=== PATIENT | female | born 1960 | race Asian ===

== ENCOUNTER 2021-06-25 13:30 | Inpatient (IN) | payer MEDICAID ==
[~2021-06-25] VITALS: Ht 154.9 cm; Wt 65.8 kg
[~2021-06-25 13:30] MED LIST: HYDR25TA4 PO; LOSA25TA3 PO; PANT40TA2 PO; SIMV-49 PO
--- NOTE | 2021-06-25 13:30 | NUR ---
PT BIB C/O LLQ ABDOMINAL PAIN STARTED YESTERDAY. PT IS AAOX4, NOT IN RESPIRATORY DISTRESS, V/S STABLE, KEPT RESTED AND COMFORTABLE. WILL CONTINUE TO MONITOR.
--- NOTE | 2021-06-25 13:50 | NUR ---
IV LINE ESTABLISHED BLOOD DRAWN AND SENT TO LAB.
--- NOTE | 2021-06-25 14:00 | NUR ---
URINE SPECIMEN COLLECTED AND SENT TO LAB.
[2021-06-25] MEDS ORDERED: KETOROLAC TROMETHAMINE 15 MG/ML VIAL ONE (14:23)
[2021-06-25 14:29] LABS: BASOPHILS # (AUTO) 0.1 K/uL (0.0-0.2); BASOPHILS % (AUTO) 0.5 % (0.0-2.0); EOSINOPHILS % (AUTO) 0.6 % (0.0-6.0); HEMATOCRIT 41 % (33-45); HEMOGLOBIN 13.8 g/dL (11.5-14.8); LYMPHOCYTES % (AUTO) 15.5 % (20.0-44.0); MEAN CORPUSCULAR HGB CONC 33 g/dl (31.0-36.0); MEAN CORPUSCULAR VOLUME 91 fL (82-100); MONOCYTES # (AUTO) 1.2 K/uL (0.1-1.30); MONOCYTES % (AUTO) 9.4 % (2.0-12.0); NEUTROPHILS # (AUTO) 9.4 K/uL (1.8-8.9); PLATELET COUNT (AUTO) 258 K/uL (150-450); RED BLOOD CELL COUNT(AUTO) 4.52 MIL/uL (4.0-5.2); WHITE BLOOD COUNT (AUTO) 12.7 K/uL (4.3-11.0)
[2021-06-25] MEDS ORDERED: KETOROLAC TROMETHAMINE INJ 30 MG/ML VIAL IV ONE (14:30)
[2021-06-25 14:32] LABS: BILIRUBIN,URINE Negative (NEGATIVE); COLOR,URINE YELLOW (YELLOW); LEUKOCYTE ESTERASE ,URINE Negative (NEGATIVE); NITRITE, URINE Negative (NEGATIVE); PROTEIN,URINE Negative (NEGATIVE); UGLUCOSE Negative (NEGATIVE); UROBILINOGEN,URINE 0.2 EU/dL (0.2)
[2021-06-25 14:37] LABS: CALCIUM, SERUM 9.3 mg/dL (8.5-10.1); CARBON DIOXIDE 28 mmol/L (21-32); CHLORIDE 101 mmol/L (98-107); CREATININE 0.7 mg/dL (0.6-1.3); GLUCOSE 106 mg/dL (74-106); POTASSIUM 3.5 mmol/L (3.5-5.1); SODIUM SERUM 139 mmol/L (136-145); UREA NITROGEN, BLOOD 12 mg/dL (7-18)
[2021-06-25 14:50] LABS: ALANINE AMINOTRANSFERASE 111 U/L (12-78); ALKALINE PHOSPHATASE 87 U/L (46-116); ASPARTATE AMINOTRANSFERASE 38 U/L (15-37); BILIRUBIN,DIRECT 0.1 mg/dL (0.0-0.2); BILIRUBIN,TOTAL 0.6 mg/dL (0.2-1.0); LIPASE 360 U/L (73-393); TOTAL PROTEIN, SERUM 8.4 g/dL (6.4-8.2)
[2021-06-25] MEDS ORDERED: ALBU18HF2 IH (16:51)
[2021-06-25] MEDS ORDERED: AMLO-212 PO (16:51)
[2021-06-25] MEDS ORDERED: FLUT12AE5 INH (16:51)
[2021-06-25] MEDS ORDERED: MULT-447 PO (16:51)
[2021-06-25] MEDS ORDERED: LORA10TA7 PO (16:51)
[2021-06-25] MEDS ORDERED: MONT10TA22 PO (16:51)
[2021-06-25] MEDS ORDERED: CEFTRIAXONE 1GM BAG (ER ONLY) 50 ML IV ONE (16:56)
[2021-06-25] MEDS ORDERED: METRONIDAZOLE 500MG/ NS 100ML 100 ML IV ONE (17:00)
[2021-06-25] MEDS ORDERED: CEFTRIAXONE 1 G in IV D5W 50 ML IV ONE (17:00)
[2021-06-25] MEDS: MONTELUKAST SODIUM (10MG) 10 MG TABLET PO SCH ×2 (18:00→19:04)
[2021-06-25] MEDS: IV NS 0.9% 1,000 ML IV PRN ×2 (18:00→23:23)
[2021-06-25] MEDS ORDERED: LORATADINE 10 MG TABLET PO PRN (18:00)
[2021-06-25] MEDS ORDERED: Z GUARD REMEDY 2 OZ OINT TP PRN (18:00)
[2021-06-25] MEDS ORDERED: ONDANSETRON HCL/PF 4 MG/2 ML VIAL IVP PRN (18:00)
[2021-06-25] MEDS: METRONIDAZOLE 500MG/ NS 100ML 500 MG in PREMIX 1 EA IV SCH (18:00)
--- NOTE | 2021-06-25 18:54 | NUR ---
NURSING SUP GAVE M/S BED 306-2. PLEASE CALL AFTER SHIFT CHANGE FOR REPORT.
--- NOTE | 2021-06-25 19:04 | NUR ---
FLAGYL IV NOT GIVEN WILL DUE AT 2300H.
--- NOTE | 2021-06-25 19:07 | NUR ---
M[place]EL[place] NOT GIVEN PT IS ON NPO.
--- NOTE | 2021-06-25 19:25 | NUR ---
REPORT GIVEN TO RN YANIV
[2021-06-25] MEDS ORDERED: ALBUTEROL FS 2.5 MG/0.5 ML VIAL.NEB NEB PRN (19:30)
[2021-06-25 21:15] VITALS: BP 129/70
--- NOTE | 2021-06-25 21:15 | NUR ---
MS RN ADMITTING NOTE PT TRANSPORTED BY [facility] TO UNIT FROM ER AT THIS TIME. RECEIVED REPORT FROM CARLOS SORIA @ER, A/OX4. PT ABLE TO MAKE NEEDS KNOWN. NO SOB, C/O PAIN, OR ANY APPARENT DISTRESS NOTED. RESPIRATIONS EVEN AND UNLABORED, ACTIVE BOWEL SOUNDS AUSCULTATED THROUGHOUT, ABDOMEN SOFT AND TENDER TO TOUCH, ACTIVE BOWEL SOUNDS AUSCULTTAED THROUGHOUT, SKIN IS INTACT, WARM TO TOUCH. CAPILLARY REFILL 3 SECONDS,PULSES PRESENT BILATERALLY, GOOD CIRCULATION NOTED. IV ACCESS IN LEFT HAND GAUGE #18, INTACT, PATENT, AND FLUSHING WELL. PT'S BELONGINGS ACCOUNTED FOR, AND KEPT AT PT'S BEDSIDE PER PT REQUEST. ASPIRATIONAND SAFETY PRECAUTIONS IN PLACE AND MAINTAINED AT ALL TIMES. BED IN LOWEST LOCKED POSITION, SIDE RAILS UPX2, TABLE AND CALL LIGHT WITHIN REACH. WILL CONTINUE TO MONITOR.
--- NOTE | 2021-06-25 21:19 | NUR ---
PATIENT MOVE TO ROOM 306 IN STABLE CONDITION. VSS. IV KEPT ON THE FLOOR FOR CONTINUITY OF CARE
[2021-06-25] MEDS: LEVOFLOXACIN 500 MG /D5W 100ML 500 MG in PREMIX 1 EA IV SCH (22:20)
[2021-06-25] MEDS: ACETAMINOPHEN 325 MG TABLET PO PRN (22:22)
[2021-06-26] MEDS ORDERED: HYDROCODONE/APAP 5/325MG TABLET PO PRN
[2021-06-26] MEDS: METRONIDAZOLE 500MG/ NS 100ML 500 MG in PREMIX 1 EA IV SCH ×5 (00:12→23:36)
[2021-06-26] MEDS ORDERED: HYDROCODONE/APAP 5/325MG TABLET ONE (01:15)
--- NOTE | 2021-06-26 06:12 | NUR ---
MS RN CLOSING NOTE PT AWAKE IN BED, A/O X4. PT IS STABLE ON ROOM AIR. NO SOB NOTED, NO S/S OF RESPIRATORY DISTRESS. PT IS BEDREST. IV ACCESS INTACT, PATENT AND FLUSHING WELL, ALL NEEDS, CARE, AND MEDICATIONS ADMINISTERED PER ORDER. SAFETY, SEIZURE, AND ASPIRATION PRECAUTIONS MAINTAINED AT ALL TIMES. BED IN LOWEST LOCKED POSITION, HOB ELEVATED, SIDE RAILS UP X2. CALL LIGHT AND TABLE WITHIN REACH. WILL ENDORSE TO ONCOMING NURSE FOR TIMBO.
[2021-06-26 06:47] LABS: BILIRUBIN,TOTAL 0.7 mg/dL (0.2-1.0); CALCIUM, SERUM 8.3 mg/dL (8.5-10.1); CREATININE 0.5 mg/dL (0.6-1.3); PHOSPHORUS 3.5 mg/dL (2.5-4.9); POTASSIUM 3.8 mmol/L (3.5-5.1); TOTAL PROTEIN, SERUM 7.1 g/dL (6.4-8.2)
[2021-06-26 06:57] LABS: THYROID STIMULATING HORMONE 1.461 uIU/mL (0.358-3.74)
--- NOTE | 2021-06-26 07:16 | NUR ---
RN OPENING NOTES Patient seen comfortably lying in bed, breathing even and unlabored, no SOB, no apparent distress noted, denies any pain or discomfort at this time. Safety precautions in place, brakes locked, side rails up X 2, call light left within reach, will monitor closely for any changes.
--- NOTE | 2021-06-26 07:30 | NUR ---
RN MS NOTES PT IN BED, SEEN AND EXAMINED BY DR. ROLAND, PLAN OF CARE DISCUSSED WITH PT, VERBALIZED UNDERSTANDING, PER MD, KEEP PT NPO, ORDERS GIVEN, NOTED AND CARRIED OUT.
[2021-06-26 07:43] LABS: BASOPHILS # (AUTO) 0.1 K/uL (0.0-0.2); BASOPHILS % (AUTO) 0.6 % (0.0-2.0); EOSINOPHILS % (AUTO) 1.9 % (0.0-6.0); HEMATOCRIT 37 % (33-45); LYMPHOCYTES # (AUTO) 2.1 K/uL (0.8-4.8); LYMPHOCYTES % (AUTO) 18.9 % (20.0-44.0); MEAN CORPUSCULAR HGB CONC 33 g/dl (31.0-36.0); MEAN CORPUSCULAR VOLUME 93 fL (82-100); MONOCYTES % (AUTO) 8.8 % (2.0-12.0); NEUTROPHILS # (AUTO) 7.6 K/uL (1.8-8.9); NEUTROPHILS % (AUTO) 69.8 % (43.0-81.0); PLATELET COUNT (AUTO) 210 K/uL (150-450); RED BLOOD CELL COUNT(AUTO) 3.93 MIL/uL (4.0-5.2); WHITE BLOOD COUNT (AUTO) 10.9 K/uL (4.3-11.0)
[2021-06-26 08:00] VITALS: BP 123/69
[2021-06-26] MEDS: HYDROCHLOROTHIAZIDE 25 MG TABLET PO SCH (09:00)
[2021-06-26] MEDS: AMLODIPINE BESYLATE 5 MG TABLET PO SCH (09:00)
[2021-06-26] MEDS: MULTIVIT W/MINERALS 1 TAB TABLET PO SCH (09:00)
[2021-06-26] MEDS: LOSARTAN POTASSIUM 25 MG TABLET PO SCH ×2 (09:00→17:00)
[2021-06-26] MEDS: FLUTICASONE/VILANTEROL 1 EACH BLST.W.DEV IH SCH (09:17)
[2021-06-26 16:00] VITALS: BP 124/71
[2021-06-26] MEDS: IV NS 0.9% 1,000 ML IV PRN (17:08)
[2021-06-26] MEDS: MONTELUKAST SODIUM (10MG) 10 MG TABLET PO SCH (18:00)
--- NOTE | 2021-06-26 18:29 | NUR ---
RN CLOSING NOTES Patient lying in bed, respirations even and unlabored, no SOB, no apparent distress noted, denies any pain or discomfort at this time. Patient remains NPO per MD order, abdominal bowel sound present in all quadrants, no grimacing when abdomen palpated. All needs attended, call light left within reach, kept clean and dry, safety precautions maintained, brakes locked, side rails up X 2, will endorse to next shift for continuity of care.
--- NOTE | 2021-06-26 19:00 | NUR ---
received in bed alert and orientated X4 in good spirits no c/o pain at this time
[2021-06-26] MEDS: LEVOFLOXACIN 500 MG /D5W 100ML 500 MG in PREMIX 1 EA IV SCH (20:01)
[2021-06-26 20:37] VITALS: BP 123/76
[2021-06-26] MEDS: MORPHINE SULFATE INJ 2 MG/ML DISP.SYRIN IV PRN (21:56)
--- NOTE | 2021-06-27 04:48 | NUR ---
Closing Notes: slept thru the night after being medicated with 1 mg Morphine IV for abd pain mainly in the left lower Quad. She ambulates to the bathroom and steady on her legs. medicated X1 for the pain.
[2021-06-27] MEDS: METRONIDAZOLE 500MG/ NS 100ML 500 MG in PREMIX 1 EA IV SCH ×4 (05:21→23:44)
--- NOTE | 2021-06-27 07:30 | NUR ---
RN OPENING NOTES Patient seen comfortably lying in bed, no SOB, no apparent distress noted, breathing even and unlabored, denies any pain or discomfort at this time. Call light left within reach, safety precautions in place, brakes locked, side rails up X 2, will monitor closely for any changes.
[2021-06-27 08:00] VITALS: BP 129/72
[2021-06-27] MEDS: AMLODIPINE BESYLATE 5 MG TABLET PO SCH (09:08)
[2021-06-27] MEDS: HYDROCHLOROTHIAZIDE 25 MG TABLET PO SCH (09:08)
[2021-06-27] MEDS: LOSARTAN POTASSIUM 25 MG TABLET PO SCH ×2 (09:08→17:13)
[2021-06-27] MEDS: MULTIVIT W/MINERALS 1 TAB TABLET PO SCH (09:09)
[2021-06-27] MEDS: FLUTICASONE/VILANTEROL 1 EACH BLST.W.DEV IH SCH (09:14)
[2021-06-27] MEDS: IV NS 0.9% 1,000 ML IV PRN (12:16)
[2021-06-27] MEDS: MORPHINE SULFATE INJ 2 MG/ML DISP.SYRIN IV PRN (13:58)
[2021-06-27 17:00] VITALS: BP 152/88
[2021-06-27] MEDS: MONTELUKAST SODIUM (10MG) 10 MG TABLET PO SCH (17:13)
--- NOTE | 2021-06-27 18:39 | NUR ---
RN CLOSING NOTES Patient lying in bed, ao x 4, able to make needs known can follow simple commands, no SOB, breathing even and unlabored. Patient now on clear liquid diet, tolerating well, c/o minimal abdominal discomfort with movement or ambulation, no nausea/vomiting, abdominal bowel sound present in all quadrants, grimacing noted when abdomen is palpated, MD aware. Due medications given per MD order, pain medications given when non pharmacological measures ineffective. Call light left within reach, all needs attended, kept clean and dry, safety precautions maintained, brakes locked, side rails up X 2, will endorse to next shift for continuity of care.
--- NOTE | 2021-06-27 19:00 | NUR ---
Received in bed at the bedside. patient alert and orientated X4 c/o left hand IV hurts site clean no seen infiltration offered to start a new IV patient refused.
[2021-06-27 20:00] VITALS: BP 144/87
[2021-06-27] MEDS: ACETAMINOPHEN 325 MG TABLET PO PRN (20:01)
[2021-06-27] MEDS: LEVOFLOXACIN 500 MG /D5W 100ML 500 MG in PREMIX 1 EA IV SCH (20:01)
[2021-06-28] MEDS: IV NS 0.9% 1,000 ML IV PRN (04:49)
--- NOTE | 2021-06-28 05:04 | NUR ---
closing notes: made rounds recentlu and she was a wake no nausea at this time smiling offered rene refused offered to start he IV in a new site refused. a good night
[2021-06-28] MEDS: METRONIDAZOLE 500MG/ NS 100ML 500 MG in PREMIX 1 EA IV SCH ×2 (05:32→12:39)
[2021-06-28 05:56] LABS: BASOPHILS % (AUTO) 0.9 % (0.0-2.0); EOSINOPHILS % (AUTO) 5.9 % (0.0-6.0); HEMATOCRIT 38 % (33-45); HEMOGLOBIN 12.6 g/dL (11.5-14.8); LYMPHOCYTES # (AUTO) 1.6 K/uL (0.8-4.8); LYMPHOCYTES % (AUTO) 28.8 % (20.0-44.0); MEAN CORPUSCULAR HGB CONC 33 g/dl (31.0-36.0); MEAN CORPUSCULAR VOLUME 92 fL (82-100); MONOCYTES # (AUTO) 0.5 K/uL (0.1-1.30); MONOCYTES % (AUTO) 8.7 % (2.0-12.0); NEUTROPHILS % (AUTO) 55.7 % (43.0-81.0); PLATELET COUNT (AUTO) 249 K/uL (150-450); RED BLOOD CELL COUNT(AUTO) 4.11 MIL/uL (4.0-5.2); WHITE BLOOD COUNT (AUTO) 5.5 K/uL (4.3-11.0)
[2021-06-28 06:11] LABS: ALBUMIN 3.2 g/dL (3.4-5.0); BILIRUBIN,TOTAL 0.4 mg/dL (0.2-1.0); CALCIUM, SERUM 8.2 mg/dL (8.5-10.1); CREATININE 0.5 mg/dL (0.6-1.3); POTASSIUM 3.6 mmol/L (3.5-5.1); TOTAL PROTEIN, SERUM 7.2 g/dL (6.4-8.2)
[2021-06-28] MEDS ORDERED: ONDA4TAB5 PO (07:17)
--- NOTE | 2021-06-28 07:26 | NUR ---
MS RN OPENING NOTES PATIENT RECEIVED AWAKE IN BED IN NO ACUTE SIGNS OF DISTRESS. A/O X4. ABLE TO MAKE NEEDS KNOWN, VERBALIZED THAT SHE STILL HAS MILD ABDOMINAL DISCOMFORTS AFTER EATING BUT MUCH BETTER NOW THAN BEFORE. ON ROOM AIR, BREATHING EVEN AND UNLABORED. IV ACCESS ON LEFT HAND G#18 INTACT AND PATENT, IVF OF NS @ 100ML/HR INFUSING WELL. SAFETY MEASURES IN PLACE: BED IN LOWEST LOCKED POSITION, SIDE RAILS UP X2 & CALL LIGHT WITHIN EASY REACH OF THE PATIENT. WILL CONTINUE TO MONITOR PT ACCORDINGLY.
[2021-06-28 08:00] VITALS: BP 130/76
--- NOTE | 2021-06-28 08:38 | NUR ---
RN NOTES PT TOLERATED CLEAR LIQUID DIET AT BREAKFAST, NO C/O OF ABDOMINAL PAIN, NAUSEA NAD VOMITING. WILL ADVANCE DIET TO SOFT DIET AT LUNCH PER MD ORDER.
[2021-06-28] MEDS: FLUTICASONE/VILANTEROL 1 EACH BLST.W.DEV IH SCH (09:05)
[2021-06-28] MEDS: AMLODIPINE BESYLATE 5 MG TABLET PO SCH (09:07)
[2021-06-28] MEDS: HYDROCHLOROTHIAZIDE 25 MG TABLET PO SCH (09:08)
[2021-06-28] MEDS: LOSARTAN POTASSIUM 25 MG TABLET PO SCH ×2 (09:09→17:00)
[2021-06-28] MEDS: MULTIVIT W/MINERALS 1 TAB TABLET PO SCH (09:10)
--- NOTE | 2021-06-28 13:30 | NUR ---
RN NOTES PT TOLERATED SOFT DIET AT LUNCH, NO C/O OF ABDOMINAL PAIN, NAUSEA AND VOMITING. WILL CONTINUE TO MONITOR.
[2021-06-28 17:00] VITALS: BP 137/85
[2021-06-28] MEDS: MONTELUKAST SODIUM (10MG) 10 MG TABLET PO SCH (17:12)
--- NOTE | 2021-06-28 17:45 | NUR ---
RN DISCHARGED NOTES PT DISCHARGED HOME IN STABLE CONDITION. A/O X4. ABLE TO MAKE NEEDS KNOWN, NO C/O ABDOMINAL PAIN, N & V DURING THE DAY. V/S TAKEN , STABLE AND RECORDED. NO SKIN ISSUES. ALL BELONGINGS ACCOUNTED FOR AND SIGNED FORM. IV ACCESS ON LEFT HAND REMOVED, NO ACTIVE BLEEDING NOTED, APPLIED DRY DRESSING AT SITE. NAME ARMBAND REMOVED. HEALTH /DISCHARGED INSTRUCTIONS GIVEN TO PT AND VERBALIZED UNDERSTANDING. PT LEFT UNIT AT 1735 VIA WHEELCHAIR ACCOMPANIED BY AND AIR CREW MEMBER. CHARGE NURSE AWARE OF DISCHARGE,
== END 2021-06-28 18:00 | disposition home or self-care (01) | DRG 244 ==
LOC: ER 13:34 → TRANSITION 18:19 → MED 19:18
PROVIDERS: ADMIT Family Medicine; ATTEND Family Medicine
DX: K57.32 Diverticulitis of large intestine without perforation or abscess without bleeding (principal); K65.9 Peritonitis, unspecified; K76.0 Fatty (change of) liver, not elsewhere classified; I10 Essential (primary) hypertension; J45.909 Unspecified asthma, uncomplicated; Z20.822 Contact with and (suspected) exposure to COVID-19
CPT/HCPCS: 36415; 71045-TC; 80048-TC; 80053-TC; 80076-TC; 83605-TC; 83690-TC; 83735-TC; 84100-TC; 84443-TC; 84484-TC; 85025-TC; 85730-TC; 87040-TC; 87081-TC; 87086-TC; A4216; C9803; G0378; J0696; J1885; J1956; J2270; J2405; J7030; J7060